=== PATIENT | female | born 1960 | race Native Hawaiian/Other Pacific Islander ===

== ENCOUNTER 2019-03-21 10:01 | Outpatient (CLI) | payer BC, OTHER ==
[~2019-03-21 10:01] MED LIST: ACET7.5T70 PO; ASPIRIN325 M1 PO; DEXL60CA4 PO; DULO60CA2 PO; LEVO0.0218 PO; LORA0.5T17 PO; RANI150T78 PO; ROSU10TA PO; TESTOST ENA200 MG/ML IM; XARELTO20 MG PO
== END 2019-03-21 19:37 | disposition home or self-care (01) ==
LOC: LABW 10:01
PROVIDERS: Family Medicine
DX: I10 Essential (primary) hypertension (principal); M17.0 Bilateral primary osteoarthritis of knee
CPT/HCPCS: 36415; 80061; 93005

== ENCOUNTER 2022-05-18 10:28 | Outpatient (CLI) | payer OTHER | END 2022-05-18 19:06 | disposition home or self-care (01) | LOC: MAMMO 10:28 → US 05-19 10:00 | PROVIDERS: ATTEND Physician Assistant | DX: N64.4 Mastodynia (principal) | CPT/HCPCS: G0279 ==

== ENCOUNTER 2023-03-30 14:55 | Outpatient (CLI) | payer OTHER | END 2023-03-30 19:02 | disposition home or self-care (01) | LOC: CT 14:55 | PROVIDERS: ATTEND Specialist | DX: R10.9 Unspecified abdominal pain (principal) ==

== ENCOUNTER 2023-05-15 13:30 | Outpatient (CLI) | payer OTHER | END 2023-05-15 19:27 | disposition home or self-care (01) | LOC: MRI 13:30 | PROVIDERS: ATTEND Orthopaedic Surgery | DX: M25.512 Pain in left shoulder (principal); M75.42 Impingement syndrome of left shoulder; M19.012 Primary osteoarthritis, left shoulder; M75.112 Incomplete rotator cuff tear or rupture of left shoulder, not specified as traumatic ==